=== PATIENT | male | born 1990 | race Caucasian/White ===

== ENCOUNTER 2018-07-20 17:53 | Emergency (ER) | payer SELFPAY ==
[~2018-07-20] VITALS: Ht 190.5 cm; Wt 95.3 kg
--- NOTE | 2018-07-20 18:03 | NUR ---
ED Nurse Note: Pt came in from home due to dog bite on L 5th finger, laceration noted. The dog is vaccinated. Pt is up to date with tetanus shot. Pain 10/10 rashid. Will cont to monitor.
[2018-07-20 18:04] VITALS: BP 139/79
--- NOTE | 2018-07-20 19:22 | Emergency Room Report ---
History of Present Illness General Chief Complaint: Animal Bite Source: Patient Present Illness HPI 28-year-old male presents to the emergency department complaining of 10 out of 10 in severity pain with a laceration to the left fifth knuckle 2 hours. Patient reports that he was bit by a dog whom he is familiar with. He states that the dog is up to date with vaccinations and the patient states that he is up-to-date with his tetanus vaccination. he reports bleeding which has somewhat resolved with bandage and pressure. Patient describes the dog is a smaller dog. Patient denies taking blood thinning medications. Denies numbness tingling or loss of sensation or gross motor movements of the affected extremity. Allergies: Coded Allergies: No Known Allergies (Unverified , 07/20/18) Patient History Past Medical History: see triage record Past Surgical History: none Pertinent Family History: none Immunizations: UTD Reviewed Nursing Documentation: PMH: Agreed; PSxH: Agreed Nursing Documentation-PMH Past Medical History: No Stated History Review of Systems All Other Systems: negative except mentioned in HPI Physical Exam Vital Signs Date Time Temp Pulse Resp B/P (MAP) Pulse Ox O2 Delivery O2 Flow Rate FiO2 07/20/18 17:58 98.4 77 20 139/79 99 Room Air Sp02 EP Interpretation: reviewed, normal General Appearance: no apparent distress, alert, GCS 15, non-toxic Head: normocephalic, atraumatic Eyes: bilateral eye normal inspection, bilateral eye PERRL ENT: hearing grossly normal, normal voice Neck: full range of motion Respiratory: lungs clear, normal breath sounds, speaking full sentences Cardiovascular #1: regular rate, rhythm, normal capillary refill Musculoskeletal: back normal, gait/station normal, normal range of motion, non- tender Neurologic: alert, oriented x3, responsive, motor strength/tone normal, sensory intact, speech normal, grossly normal Psychiatric: judgement/insight normal Skin: normal color, no rash, warm/dry, well hydrated, laceration - flap laceration 2.5cm of dorsolateral left hand just proximal to the 5th knuckle. Procedures Laceration/Wound Repair Laceration/Wound Repair : Consent: Verbal Wound Location: upper extremity - flap laceration 2.5cm of dorsolateral left hand just proximal to the 5th knuckle. Wound's Depth, Shape: flap Wound Length (cm): 2 Wound Explored: contaminated - assumed to be contaminated due to nature of being a dog bite. Irrigated w/ Saline (ccs): 500 Anesthesia: 1% Lidocaine Volume Anesthetic (ccs): 3 Wound Repaired With: sutures Suture Size/Type: 5:0, proline Number of Sutures: 2 Layer Closure?: No Sterile Dressing Applied?: Yes Splint Applied?: Yes Type of Splint Applied: finger splint Sling Applied?: No Patient Tolerated: Well Complications: None Medical Decision Making PA Attestation Dr. Dumas is my supervising Physician whom patient management has been discussed with. Diagnostic Impression: Primary Impression: Dog bite Qualified Codes: W54.0XXA - Bitten by dog, initial encounter ER Course 28-year-old male presents to the emergency department complaining of 10 out of 10 in severity pain with a laceration to the left fifth knuckle 2 hours. Patient reports that he was bit by a dog whom he is familiar with. He states that the dog is up to date with vaccinations and the patient states that he is up-to-date with his tetanus vaccination. he reports bleeding which has somewhat resolved with bandage and pressure. Patient describes the dog is a smaller dog. Patient denies taking blood thinning medications. Denies numbness tingling or loss of sensation or gross motor movements of the affected extremity. Ddx considered but are not limited to Cellulitis, rabies, fracture, neurovascular compromise of extremity. Vital signs: are WNL, pt. is afebrile H&PE are most consistent with dog bite, mild infection. ORDERS: none required at this time, the diagnosis is clinical ED INTERVENTIONS: --Copious Irrigation under pressure. -- Two sutures placed to lightly aid in approximation of the flap of skin. - not tightly sutured to allow draining and to prevent possible entrapment of bacteria. - - Finger Splint applied to the left 5th digit by electronic prepress technician. Pt. remains neurovascularly intact. DISCHARGE: At this time pt. is stable for d/c to home. Will provide printed patient care instructions, and any necessary prescriptions. Care plan and follow up instructions have been discussed with the patient prior to discharge. Last Vital Signs Date Time Temp Pulse Resp B/P (MAP) Pulse Ox O2 Delivery O2 Flow Rate FiO2 07/20/18 18:04 98.4 77 20 139/79 99 Room Air Disposition: HOME, SELF-CARE Condition: Stable Scripts Acetaminophen* (TYLENOL EXTRA STRENGTH*) 500 Mg Tablet 500 MG ORAL Q6H, #20 TAB 0 Refills Prov: Kylee Myers 07/20/18 Bacitracin/Polymyxin B Sulfate (BACITRACIN-POLYMYXIN OINTMENT) 28.35 Gm Oint...g. 1 APPLIC TP BID, #28.3 GM Prov: Kylee Myers 07/20/18 Amoxicillin/Potassium Clav 875-125* (AUGMENTIN 875-125 TABLET*) 1 Each Tablet 1 TAB ORAL TWICE A DAY for 10 Days, #20 TAB Prov: Kylee Myers 07/20/18 Patient Instructions: Animal Bite Additional Instructions: Take medications as directed. Follow up with a Primary Care Provider in 3-5 days, even if your symptoms have resolved. --Please review list of primary care clinics, if you do not already have a primary care provider Return sooner to ED if new symptoms occur, or current symptoms become worse. - Please note that this Emergency Department Report was dictated using [employer] driver technology software, occasionally this can lead to erroneous entry secondary to interpretation by the dictation equipment. Kylee Myers Jul 20, 2018 19:22
[2018-07-20] MEDS ORDERED: AUGMENTIN 875-1 EAC1 ORAL (19:23)
[2018-07-20] MEDS ORDERED: BACITRACIN-P28.35 GM TP (19:23)
[2018-07-20] MEDS ORDERED: TYLENOL EXTRA500 MG ORAL (19:23)
[2018-07-20 19:30] VITALS: BP 118/98
[2018-07-20] MEDS ORDERED: Augmentin 875mg Tab ORAL ONE (19:30)
--- NOTE | 2018-07-20 19:30 | NUR ---
ED Nurse Note: Pt discharge instruction provided w/ prescription, id band removed, pt education done via discussion and handout, pt verbalized understanding and agrees with plan, pt advised to return to ed or pcp for suture removal in 10 days. wound care done by manager clinical.
== END 2018-07-20 19:30 | disposition home or self-care (01) ==
LOC: EMR 18:30
DX: S61.217A Laceration without foreign body of left little finger without damage to nail, initial encounter (principal); W54.0XXA Bitten by dog, initial encounter; Y92.89 Other specified places as the place of occurrence of the external cause
CPT/HCPCS: 99283